=== PATIENT | female | born 1985 | race Caucasian/White ===

== ENCOUNTER 2022-05-19 10:27 | Outpatient (CLI) | payer BC, SELFPAY ==
[2022-05-19 12:44] LABS: Hepatitis B Surface Antigen* Negative (Negative)
[2022-05-19 12:55] LABS: HIV 1/2/P24 Combo Screen* Negative (Negative)
[2022-05-19 13:01] LABS: Hepatitis C Virus Antibody* Negative (Negative)
[2022-05-19 13:27] LABS: Chlamydia DNA Amplified* NOT DETECTED (No Detected); GC DNA Amplified* NOT DETECTED (No Detected)
[2022-05-21 02:25] LABS: Rapid Plasma Reagin (RPR) Non Reactive (Non Reactive)
== END 2022-05-19 10:28 | disposition home or self-care (01) ==
PROVIDERS: PCP Family Medicine; Visit Provider Registered Nurse
DX: Z11.3 Encounter for screening for infections with a predominantly sexual mode of transmission (principal); Z11.4 Encounter for screening for human immunodeficiency virus [HIV]
CPT/HCPCS: 86592; 86703; 86803; 87340; 87491; 87591

== ENCOUNTER 2025-03-05 11:50 | Outpatient (CLI) | payer BC, SELFPAY ==
[2025-03-06 23:48] LABS: HPV Source Cervix
[2025-03-08 10:44] LABS: Pap Test Digital Imaging Done
== END 2025-03-05 11:51 | disposition home or self-care (01) ==
PROVIDERS: PCP Family Medicine; Visit Provider Physician Assistant
DX: Z12.4 Encounter for screening for malignant neoplasm of cervix (principal)
CPT/HCPCS: 87624; 87625; 88141; 88142; 88175